=== PATIENT | female | born 1995 | race Asian ===

== ENCOUNTER 2022-09-23 01:21 | Emergency (ER) | payer OTHER ==
[2022-09-23] MEDS ORDERED: KETOROLAC 15 MG/ML VIAL IVP STA (01:45)
[2022-09-23] MEDS ORDERED: FAMOTIDINE 20 MG/2 ML VIAL IVP STA (01:45)
[2022-09-23] MEDS ORDERED: SODIUM CHLORIDE 0.9% 1,000 ML IV STA (01:45)
--- NOTE | 2022-09-23 01:48 | ED Physician Documentation ---
History of Present Illness - Stated complaint Stated Complaint: RT LOWER ABD PX - Chief complaint Chief Complaint: Abd Pain - History obtained from History obtained from: Patient - Additonal information Additional information: 27yF with hx GERD, h pylori, otherwise healthy, p/w abdominal pain X 2 days sudden onset, constant, initially in epigastrium and now radiating to RLQ, burning quality, a/w lower back pain. patient's LMP is August 23. Last normal BM was 4 days ago and she states she feels constipated. also with nbnb n/v on tuesday. denies fever, urinary sx, or possibility of . Review of Systems Constitutional: denies: Fever Respiratory: denies: Dyspnea GI: reports: Abdominal Pain, Nausea, Vomiting, Constipation. denies: Diarrhea, Bloody / black stool : denies: Dysuria, Frequency, Hematuria Musculoskeletal: reports: Back pain PD PAST MEDICAL HISTORY - Present Medications Home Medications: Ambulatory Orders Medication Instructions Recorded Confirmed No Known Home Medications 09/23/22 09/23/22 - Allergies Allergies/Adverse Reactions: Allergies Allergy/AdvReac Type Severity Reaction Status Date / Time No Known Drug Allergies Allergy Verified 09/23/22 01:29 PD ED PE NORMAL - Vitals Vital signs reviewed: Yes - General General: Alert and oriented X 3, No acute distress, Well developed/nourished - HEENT HEENT: Atraumatic, PERRL, EOMI - Neck Neck: Supple, no meningeal sign - Cardiac Cardiac: RRR - Respiratory Respiratory: No respiratory distress, Clear bilaterally - Abdomen Abdomen: Non tender, Non distended, Other (RLQ discomfort with palpation) - Back Back: No CVA TTP, Other (BL lower back discomfort to palpation) - Derm Derm: Normal color, Warm and dry - Neuro Neuro: Alert and oriented X 3, No motor deficit, No sensory deficit Results - Vitals Vitals: Vital Signs - 24 hr 09/23/22 09/23/22 01:25 02:04 Temperature 36.1 C L Heart Rate 113 H 94 Respiratory 17 16 Rate Blood Pressure 99/56 L 99/62 O2 Saturation 100 100 Oxygen O2 Source Room air - Labs Labs: Laboratory Tests 09/23/22 09/23/22 09/23/22 01:50 01:53 01:53 WBC 9.7 RBC 4.65 Hgb 13.1 Hct 40.4 MCV 86.9 MCH 28.2 MCHC 32.4 RDW 11.5 L Plt Count 209 MPV 9.7 Neut # (Auto) 7.3 H Lymph # (Auto) 1.6 [place] # (Auto) 0.6 Eos # (Auto) 0.0 Baso # (Auto) 0.0 Absolute Nucleated RBC 0.00 Nucleated RBC % 0.0 Sodium 137 Potassium 3.0 L Chloride 102 Carbon Dioxide 26 Anion Gap 9.0 BUN 12 Creatinine 0.6 Estimated GFR (MDRD) 118 Glucose 120 H Calcium 9.1 Total Bilirubin 0.6 AST 20 ALT 14 Alkaline Phosphatase 52 Total Protein 8.4 H Albumin 4.4 Globulin 4.0 Albumin/Globulin Ratio 1.1 Lipase 35 Urine Color YELLOW Urine Clarity CLEAR Urine pH 8.0 H Ur Specific [place] 1.015 Urine Protein NEGATIVE Urine Glucose (UA) NEGATIVE Urine Ketones NEGATIVE Urine Occult Blood NEGATIVE Urine Nitrite NEGATIVE Urine Bilirubin NEGATIVE Urine Urobilinogen 0.2 (NORMAL) Ur Leukocyte Esterase NEGATIVE Urine RBC 0-5 Urine WBC 0-3 Ur Squamous Epith Cells FEW Squamous Urine Bacteria Rare Urine Culture Comments NOT INDICATED Urine HCG, Qual NEGATIVE PD Medical Decision Making - ED course ED course: 27yF p/w RLQ pain and BL lower back pain X 2 days. ddx includes constipation, menstrual cramping, ovarian torsion, ectopic, appendicitis. The latter three are unlikely given she has benign abdominal exam. Also possibility of renal stones, but patient is sitting completely still on the bed, not writhing around c/w stones. Plan to obtain cbc, abdominal panel, ua, urine hcg. IV toradol provided for analgesia with relief. Pepcid also provided per patient request given her nausea which she states is chronic and improves with reflux meds. declined zofran. plan to provide IVF as well given mild tachycardia. CBC without leukocytosis. u/a and u preg negative. patient feeling better. return precautions given. plan to f/u with pcp. Departure - Departure Clinical Impression: Abdominal pain Condition: Good Instructions: Abdominal Pain Comments: You are seen in the emergency department for abdominal pain. Your lab work uncovered no emergent cause for your condition. Take Ibuprofen 400 to 600 mg every 6 hours as needed for pain. Please follow-up with your primary care provider. Return to the emergency department for new or worsening symptoms or other concerns.
[2022-09-23 01:58] LABS: BILIRUBIN,URINE NEGATIVE (NEGATIVE); GLUCOSE, URINE (UA) NEGATIVE (NEGATIVE); KETONES,URINE (UA) NEGATIVE (NEGATIVE); LEUKOCYTE ESTERASE, URINE NEGATIVE (NEGATIVE); NITRITE,URINE NEGATIVE (NEGATIVE); OCCULT BLOOD,URINE NEGATIVE (NEGATIVE); PROTEIN,URINE NEGATIVE (NEGATIVE); UROBILINOGEN,URINE 0.2 (NORMAL) E.U./dL (NORMAL)
[2022-09-23 02:00] LABS: BASOPHILS % (AUTO) 0.3 %; EOSINOPHILS % (AUTO) 0.4 %; HCT - HEMATOCRIT 40.4 % (37.0-47.0); HGB - HEMOGLOBIN 13.1 g/dL (12.0-16.0); LYMPHOCYTES # (AUTO) 1.6 10^3/uL (1.5-3.5); LYMPHOCYTES % (AUTO) 16.8 %; MEAN CORPUSCULAR HEMOGLOBIN 28.2 pg (27.0-31.0); MEAN CORPUSCULAR HGB CONC 32.4 g/dL (32.0-36.0); MEAN CORPUSCULAR VOLUME 86.9 fL (81.0-99.0); MEAN PLATELET VOLUME 9.7 fL (7.9-10.8); MONOCYTES # (AUTO) 0.6 10^3/uL (0.0-1.0); MONOCYTES % (AUTO) 6.2 %; NEUTROPHILS # (AUTO) 7.3 10^3/uL (1.5-6.6); PLT - PLATELET COUNT 209 10^3/uL (130-450); RED BLOOD COUNT 4.65 10^6/uL (4.20-5.40); RED CELL DISTRIBUTION WIDTH 11.5 % (12.0-15.0); WHITE BLOOD COUNT 9.7 x10^3/uL (4.8-10.8)
[2022-09-23 02:00] LABS: CLARITY,URINE CLEAR (CLEAR)
[2022-09-23 02:06] LABS: BACTERIA,URINE Rare /HPF (None Seen); HCG UR QUAL NEGATIVE; RBC,URINE 0-5 /HPF (0-5); SQUAMOUS EPITHELIAL CELL,UR FEW Squamous (<= Few); WBC,URINE 0-3 /HPF (0-5)
[2022-09-23 02:08] VITALS: BP 99/62
[2022-09-23 02:10] LABS: ALBUMIN 4.4 g/dL (3.2-5.5); ALBUMIN/GLOBULIN RATIO 1.1 (1.0-2.2); BILIRUBIN,TOTAL 0.6 mg/dL (0.2-1.0); CALCIUM 9.1 mg/dL (8.5-10.3); CREATININE 0.6 mg/dL (0.4-1.0); TOTAL PROTEIN 8.4 g/dL (6.7-8.2)
[2022-09-23] MEDS ORDERED: POTASSIUM CHLORIDE 20 MEQ/15 ML UDC PO STA (02:12)
== END 2022-09-23 02:31 | disposition home or self-care (01) ==
LOC: ED 01:21
DX: R10.31 Right lower quadrant pain (principal); M54.50 Low back pain, unspecified; R11.0 Nausea; R00.0 Tachycardia, unspecified
CPT/HCPCS: 36415; 80053; 81001; 81025; 83690; 85025; 96374; 99283; A9270; 87086